=== PATIENT | female | born 1945 | race Caucasian/White ===

== ENCOUNTER 2023-12-07 08:16 | Outpatient (CLI) | payer MEDICARE, SELFPAY ==
[2023-12-07] VITALS (9 sets, daily range): BP systolic 128–188; BP diastolic 69–82; PULSE 71–79; RESP 12–19; TEMP 36.5; O2SAT 96–99
--- NOTE | 2023-12-07 09:15 | DI.RAD.S_ITS ---
PROCEDURE: PAIN L INTERLAMINAR/CAUDAL INJ INDICATIONS: para left L5/S1 TL GLORIA COMPARISON: None. FINDINGS: Fluoroscopic spot filming was performed to verify placement of spinal needles at the left L5-S1 level(s), as labeled on the films. Appropriate location(s) of the needle tip(s) was confirmed by injection of iodinated contrast. IMPRESSION: Fluoroscopic support for left L5-S1 GLORIA. Please see separate procedure note for further details. Dictated by: Pa Espitia M.D. on 12/07/2023 at 17:33 Approved by: Pa Espitia M.D. on 12/07/2023 at 17:34
[2023-12-07] MEDS: MIDAZOLAM 2 MG/2 ML VIAL IV (09:43)
[2023-12-07] MEDS: iopamidoL 15 ML VIAL 3 ML INJ (09:47)
[2023-12-07] MEDS: BUPIVACAINE 0.25% (PF) VIAL 2 ML INJ (09:48)
[2023-12-07] MEDS: DEXAMETHASONE 10 MG/ML VIAL INJ (09:48)
[2023-12-07] MEDS: BETAMETHASONE 30 MG/5 ML MDV 6 MG INJ (09:48)
--- NOTE | 2023-12-07 10:01 | P.PCN_ITS ---
Date/Time/Diagnoses Date of procedure: 12/07/23 Time of procedure: 10:01 Pre-procedure diagnosis: 1. HNP WITH RADICULAR FEATURES, 2. MULTILEVEL CENTRAL STENOSIS, Post-procedure diagnosis: same Procedure Notes Procedure: 1. FLUOROSCOPICALLY GUIDED CONTRAST CONTROLLED INTERLAMINAR EPIDURAL STEROID INJECTION - L5/S1 Indications: Martha is referred by ELEONORA Greer for treatment of Bilateral Foraminal Stenosis L>R LE symptoms. Physician: Marbin Silveira Total Fluoroscopy time (seconds): 11 Total sedation minutes: 13 Complications: none Procedure in detail & Post-procedure care: FINDINGS Multilevel Central Spinal Stenosis with Nerve Root Compression DESCRIPTION OF PROCEDURE Fluoroscopically guided, contrast-controlled L5/S1 translaminar epidural steroid injection. Following review of allergy and review of potential side effects and complications, including, but not necessarily limited to, infection, allergic reaction, local tissue breakdown, temporary as well as permanent nerve injury, paralysis, stroke and possible , the patient indicated that the patient understood and agreed to proceed. An informed consent document was signed by the patient, witnessed by a nurse, and placed in the patient's chart. Additionally, other treatment options including modalities, medications, and physical therapy were reviewed with the patient. After review of previous anaesthesic history and IV conscious sedation the patient was deemed safe to proceed with today?s procedure with IV conscious sedation as ASA class II designation. Safety time-out was performed to confirm patient ID, procedure to be performed and site of procedure. IV sedation was accomplished with a combination of 2mg of Versed administered by the RN after DO order, titrated to patient comfort during the course of the procedure while the patient remained responsive to all verbal commands. In the prone position, following sterile prep and drape of the lumbar region, the L5/S1 translaminar space was identified fluoroscopically. The skin was anesthetized via a 25-gauge, 1.5-inch needle with 1% lidocaine solution. At this point, a 22-gauge short bevel spinal needle was atraumatically introduced and advanced under fluoroscopic guidance into the region of the L5/S1 translaminar space. Depth was confirmed on lateral view. Radiological data, including multiple fluoroscopic views of the lumbar spine, reveal a spinal needle at the L5/S1 translaminar space. Lateral views then show placement of the needle in the epidural space. Subsequent views show contrast material flowing superiorly and inferiorly in the epidural space. No vascular or intrathecal uptake is observed. At this point, using loss of resistance technique with saline and air, the epidural space was entered. This was confirmed following negative aspiration with injection of approximately 1.5cc of Isovue 200, showing excellent epidural flow without vascular or intrathecal uptake. At this point, 1 cc of 1% lidocain e solution combined with 2cc or 10mg of dexamethasone and 6mg of betamethasone was injected without incident. The patent tolerated the procedure without signs of symptoms of complications prior to transfer to the recovery area for further monitoring. The patient was then transferred to the recovery area where they were observed for an appropriate period of time after the injection. The patient reported a VAS score of 6 prior to the procedure and a post-procedure VAS of 0. POST OP INSTRUCTIONS The patient was provided a Pain Log to continue to record their response to the target-specific procedure prior to follow-up visit with their referring physician. Additionally, specific post-injection care instructions and a contact number to our office were provided if concerns arise regarding possible complications associated with the procedure are suspected.
== END 2023-12-07 10:20 | disposition home or self-care (01) ==
PROVIDERS: PCP Physician Assistant Medical; Referring Provider Physical Medicine & Rehabilitation; Visit Provider Physical Medicine & Rehabilitation
DX: M51.17 Intervertebral disc disorders with radiculopathy, lumbosacral region (principal); M48.07 Spinal stenosis, lumbosacral region
CPT/HCPCS: 62323; 99152; J0702; J1100; J2250; J3490

== ENCOUNTER → 2024-06-05 11:54 | Outpatient (CLI) | payer MEDICARE, SELFPAY ==
--- NOTE | 2024-06-05 11:56 | DI.RAD.S_ITS ---
PROCEDURE: XR LUMBAR SPINE MIN 4V INDICATIONS: BACK PAIN TECHNIQUE: 5 views of the lumbar spine were acquired, including bilateral oblique views. COMPARISON: None. FINDINGS: Bones: 5 nonrib-bearing vertebrae are present. L4-5 posterior spinal fixation and discectomy. Grade 1 retrolisthesis of L1 on L2, L2 on L3 and L3 on L4. Grade 2 anterolisthesis of L5 on S1. 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 Decreased osseous mineralization. Multilevel degenerative changes of the lumbar spine, severe at L1-L2 and L2-L3 and L5-S1. No vertebral body compression fractures. No suspicious bony lesions. Soft tissues: Overlying bowel gas pattern is normal. No suspicious soft tissue calcifications. Oblique images: Likely pars defects at L5-S1, evaluation is limited secondary to overlying hardware. IMPRESSION: Severe multilevel degenerative changes of the lumbar spine as described above status post L4-5 posterior spinal fixation. Dictated by: Jay William M.D. on 06/05/2024 at 14:30 Approved by: Jay William M.D. on 06/05/2024 at 14:31
--- NOTE | 2024-06-05 11:56 | DI.RAD.S_ITS ---
PROCEDURE: XR CERVICAL SPINE 4V OR 5V INDICATIONS: BILATERAL HAND PAIN TECHNIQUE: 5 views of the cervical spine acquired. COMPARISON: None. FINDINGS: Bones: No fractures or dislocations to the C7-T1 level. Straightening of normal cervical lordosis. Mild anterolisthesis of C7 on T1. Oblique images demonstrate at least mild multilevel bony foraminal stenoses. There are multilevel degenerative changes of the cervical spine with facet and uncovertebral arthropathy, disc height loss with degenerative endplate changes and spurring. This is severe at C3-C4, C4-C5 and C6-C7. Soft tissues: No prevertebral soft tissue swelling. IMPRESSION: Severe multilevel degenerative changes of the cervical spine. Consider MRI for further evaluation as clinically indicated. Dictated by: Jay William M.D. on 06/05/2024 at 14:28 Approved by: Jay William M.D. on 06/05/2024 at 14:30
== END ==
PROVIDERS: PCP Physician Assistant Medical; Referring Provider Physical Medicine & Rehabilitation; Visit Provider Physical Medicine & Rehabilitation
DX: M47.26 Other spondylosis with radiculopathy, lumbar region (principal); M47.27 Other spondylosis with radiculopathy, lumbosacral region; M79.641 Pain in right hand; M47.812 Spondylosis without myelopathy or radiculopathy, cervical region; M79.642 Pain in left hand; M43.17 Spondylolisthesis, lumbosacral region; Z98.890 Other specified postprocedural states
CPT/HCPCS: 72050; 72110

== ENCOUNTER → 2024-06-26 11:52 | Outpatient (CLI) | payer MEDICARE, SELFPAY ==
--- NOTE | 2024-06-26 11:53 | DI.MRI.S_ITS ---
PROCEDURE: MR CERVICAL SPINE WO CON INDICATIONS: PROGRESSIVE CERVICAL RADICULOPATHY TECHNIQUE: Noncontrast sagittal T1 spin echo and T2 fast spin echo, sagittal STIR, foraminal oblique sagittal T2 fast spin echo, and axial gradient echo or T2 fast spin echo through the cervical spine. COMPARISON: None. FINDINGS: Image quality: Excellent. Alignment and Curvature: Mild reversal the normal cervical lordosis. Mild anterolisthesis of C7 on T1. Bone Marrow: Mild multilevel degenerative endplate changes. Marrow demonstrates normal overall signal. Spinal Cord: Visualized spinal cord has normal size and signal. No cerebellar tonsillar herniation. Paraspinous Soft Tissues: No paravertebral masses. Prevertebral soft tissues are normal in thickness. C2-C3: Disc desiccation. No central canal stenosis. Facet and uncovertebral arthropathy. Mild bilateral neural foraminal stenosis. C3-C4: Disc desiccation and mild height loss. Posterior disc osteophyte complex abutting the ventral cord. Mild central canal stenosis. Facet uncovertebral arthropathy. Moderate bilateral neural foraminal stenosis. C4-C5: Disc desiccation and moderate height loss. Posterior disc osteophyte complex. Mild central canal stenosis. Facet and uncovertebral arthropathy. Moderate bilateral neural foraminal stenosis. C5-C6: Disc desiccation and mild height loss. Posterior disc osteophyte complex. Mild central canal stenosis. Facet uncovertebral arthropathy. Moderate bilateral neural foraminal stenosis. C6-C7: Disc desiccation is severe height loss. Posterior disc osteophyte complex. Mild to moderate central canal stenosis. Facet uncovertebral arthropathy. Severe bilateral neural foraminal stenosis. C7-T1: No central canal or neural foraminal stenosis. IMPRESSION: 1. Multilevel degenerative changes of the cervical spine as described above. 2. Ndty-cd-vyalgwbs central canal stenosis at C6-C7. Mild multilevel central canal stenosis at other levels. 3. Severe bilateral neural foraminal stenosis at C6-C7. Moderate multilevel neural foraminal stenosis at other levels. Dictated by: Jay William M.D. on 06/26/2024 at 16:25 Approved by: Jay William M.D. on 06/26/2024 at 16:49
== END ==
LOC: MRI 11:52
PROVIDERS: PCP Physician Assistant Medical; Referring Provider Physical Medicine & Rehabilitation; Visit Provider Physical Medicine & Rehabilitation
DX: M47.22 Other spondylosis with radiculopathy, cervical region (principal); M48.02 Spinal stenosis, cervical region
CPT/HCPCS: 72141

== ENCOUNTER 2024-07-25 09:38 | Outpatient (CLI) | payer MEDICARE, SELFPAY ==
[2024-07-25] VITALS (7 sets, daily range): BP systolic 129–164; BP diastolic 58–83; PULSE 74–84; RESP 14–21; TEMP 36.6; O2SAT 95–100
--- NOTE | 2024-07-25 09:40 | DI.RAD.S_ITS ---
PROCEDURE: PAIN L INTERLAMINAR/CAUDAL INJ INDICATIONS: para left L5/S1 TL GLORIA COMPARISON: [facility], , PAIN L INTERLAMINAR/CAUDAL INJ, 12/07/2023, 9:47. FINDINGS/IMPRESSION: Fluoroscopic spot filming was performed to verify placement of spinal needles at the L5-S1 level(s), as labeled on the films. Appropriate location(s) of the needle tip(s) was confirmed by injection of iodinated contrast. Dictated by: Kulwinder Avery M.D. on 07/25/2024 at 14:18 Approved by: Kulwinder Avery M.D. on 07/25/2024 at 14:19
[2024-07-25] MEDS: MIDAZOLAM 2 MG/2 ML VIAL IV (11:11)
[2024-07-25] MEDS: DEXAMETHASONE 10 MG/ML VIAL INJ (11:13)
[2024-07-25] MEDS: BETAMETHASONE 30 MG/5 ML MDV 12 MG INJ (11:14)
[2024-07-25] MEDS: BUPIVACAINE 0.25% (PF) VIAL 2 ML INJ (11:14)
[2024-07-25] MEDS: iopamidoL 15 ML VIAL 3 ML INJ (11:14)
--- NOTE | 2024-07-25 11:26 | P.PCN_ITS ---
Date/Time/Diagnoses Date of procedure: 08/14/24 Time of procedure: 11:26 Pre-procedure diagnosis: 1. HNP WITH RADICULAR FEATURES, 2. MULTILEVEL CENTRAL STENOSIS, Post-procedure diagnosis: same Procedure Notes Procedure: 1. FLUOROSCOPICALLY GUIDED CONTRAST CONTROLLED INTERLAMINAR EPIDURAL STEROID INJECTION - L5/S1 Indications: Martha is referred by ELEONORA Greer for treatment of Bilateral Foraminal Stenosis L>R LE symptoms. Physician: Marbin Silveira Total Fluoroscopy time (seconds): 8 Total sedation minutes: 12 Complications: none Procedure in detail & Post-procedure care: FINDINGS Multilevel Central Spinal Stenosis with Nerve Root Compression DESCRIPTION OF PROCEDURE Fluoroscopically guided, contrast-controlled L5/S1 translaminar epidural steroid injection. Following review of allergy and review of potential side effects and complications, including, but not necessarily limited to, infection, allergic reaction, local tissue breakdown, temporary as well as permanent nerve injury, paralysis, stroke and possible , the patient indicated that the patient understood and agreed to proceed. An informed consent document was signed by the patient, witnessed by a nurse, and placed in the patient's chart. Additionally, other treatment options including modalities, medications, and physical therapy were reviewed with the patient. After review of previous anaesthesic history and IV conscious sedation the patient was deemed safe to proceed with today?s procedure with IV conscious sedation as ASA class II designation. Safety time-out was performed to confirm p atient ID, procedure to be performed and site of procedure. IV sedation was accomplished with a combination of 2mg of Versed administered by the RN after DO order, titrated to patient comfort during the course of the procedure while the patient remained responsive to all verbal commands. In the prone position, following sterile prep and drape of the lumbar region, the L5/S1 translaminar space was identified fluoroscopically. The skin was anesthetized via a 25-gauge, 1.5-inch needle with 1% lidocaine solution. At this point, a 22-gauge short bevel spinal needle was atraumatically introduced and advanced under fluoroscopic guidance into the region of the L5/S1 translaminar space. Depth was confirmed on lateral view. Radiological data, including multiple fluoroscopic views of the lumbar spine, reveal a spinal needle at the L5/S1 translaminar space. Lateral views then show placement of the needle in the epidural space. Subsequent views show contrast material flowing superiorly and inferiorly in the epidural space. No vascular or intrathecal uptake is observed. At this point, using loss of resistance technique with saline and air, the epidural space was entered. This was confirmed following negative aspiration with injection of approximately 1.5cc of Isovue 200, showing excellent epidural flow without vascular or intrathecal uptake. At this point, 1 cc of 1% lidocaine solution combined with 2cc or 10mg of dexamethasone and 6mg of betamethasone was injected without incident. The patent tolerated the procedure without signs of symptoms of complications prior to transfer to the recovery area for further monitoring. The patient was then transferred to the recovery area where they were observed for an appropriate period of time after the injection. The patient reported a VAS score of 6 prior to the procedure and a post-procedure VAS of 0. POST OP INSTRUCTIONS The patient was provided a Pain Log to continue to record their response to the target-specific procedure prior to follow-up visit with their referring physician. Additionally, specific post-injection care instructions and a contact number to our office were provided if concerns arise regarding possible complications associated with the procedure are suspected.
== END 2024-07-25 12:39 | disposition home or self-care (01) ==
LOC: RAD 09:40
PROVIDERS: PCP Physician Assistant Medical; Referring Provider Physical Medicine & Rehabilitation; Visit Provider Physical Medicine & Rehabilitation
DX: M51.17 Intervertebral disc disorders with radiculopathy, lumbosacral region (principal); M48.07 Spinal stenosis, lumbosacral region
CPT/HCPCS: 62323; 99152; J0702; J1100; J2250; J3490

== ENCOUNTER 2024-10-29 08:38 | Outpatient (CLI) | payer MEDICARE, SELFPAY ==
[2024-10-29] VITALS (9 sets, daily range): BP systolic 129–175; BP diastolic 60–89; PULSE 74–83; RESP 12–16; TEMP 36.6; O2SAT 95–99
[2024-10-29] MEDS: MIDAZOLAM 2 MG/2 ML VIAL IV (09:24)
[2024-10-29] MEDS: DEXAMETHASONE 10 MG/ML VIAL 20 MG INJ (09:30)
[2024-10-29] MEDS: BUPIVACAINE 0.25% (PF) VIAL 2 ML INJ (09:30)
[2024-10-29] MEDS: iopamidoL 15 ML VIAL 3 ML INJ (09:30)
--- NOTE | 2024-10-29 09:45 | P.PCN_ITS ---
Date/Time/Diagnoses Date of procedure: 10/29/24 Time of procedure: 09:45 Pre-procedure diagnosis: 1. CERVICAL STENOSIS, 2. CERVICAL HNP WITH UPPER EXTREMITY RADICULAR FEATURES Post-procedure diagnosis: same Procedure Notes Procedure: 1. FLUORSCOPICALLY GUIDED CONTRAST CONTROLLED INTERLAMINAR EPIDURAL STEROID INJECTION - C6/7 TL GLORIA Indications: Martha is referred by MARY Greer for treatment of Cervical HNP with Upper Extremity Paresthesias. Physician: Marbin Silveira Total Fluoroscopy time (seconds): 49 Total sedation minutes: 16 Complications: none Procedure in detail & Post-procedure care: FINDINGS Cervical Stenosis due to disc deterioration and nerve root irritation and nerve root irritation DESCRIPTION OF PROCEDURE Fluoroscopically guided, contrast-controlled C6/7 translaminar epidural steroid injection with conscious sedation. Following review of allergy and review of potential side effects and complications, including, but not necessarily limited to, infection, allergic reaction, local tissue breakdown, temporary as well as permanent nerve injury, stroke, paralysis, and possible , the patient indicated that patient understood and agreed to proceed. An informed consent document was signed by the patient, witnessed by a nurse, and placed in the patient's chart. Additionally, other treatment options including modalities, medications, and physical therapy were reviewed with the patient. After review of previous anaesthesic history and IV conscious sedation the patient was deemed safe to proceed with today?s procedure with IV conscious sedation as ASA class II designation. Safety time-out was performed to confirm patient ID, procedure to be performed and site of procedure. IV sedation was accomplished with a combination of 2mg of Versed administered by the RN after DO order, titrated to patient comfort during the course of the procedure while the patient remained responsive to all verbal commands. In the prone position, following sterile prep and drape of the cervical region, the C6/7 translaminar space was identified fluoroscopically. The skin was anesthetized via a 25-gauge 1.5-inch needle with 1% lidocaine solution. At this point, a 25-gauge, 2.5-inch short bevel spinal needle was atraumatically introduced and advanced under fluoroscopic guidance into epidural space at the C6/7 translaminar space. Depth was confirmed on lateral view. Radiological data, including multiple fluoroscopic views of the cervical spine, reveal a spinal needle at the C6/7 translaminar space. Lateral views then show placement of the needle in the epidural space. Subsequent views show contrast material flowing superiorly and inferiorly in the epidural space. DSA fluoroscopy with live contrast injection, once again, confirmed no vascular or intrathecal uptake. At this point, using loss of resistance technique with saline and air, the epidural space was entered. Following negative aspiration, injection of approximately 1.5 cc of Isovue-200 with live fluoroscopy in the AP view confirmed epidural flow in the epidural space without vascular or intrathecal uptake observed. Subsequently, a test dose of 1 cc of 1% lidocaine solution was injected and patient was observed for two minutes without signs or symptoms of complications, including abdominal pain, shortness of breath, bilateral upper or lower extremity weakness, nausea and vomiting, prior to steroid injection. At this point, 2cc or 20mg of dexamethasone was then injected without incident. The patient tolerated the procedure well without signs or symptoms of complica tions prior to being transferred to the recovery area for further monitoring, The patient was then transferred to the recovery area where they were observed for an appropriate period of time after the injection. The patient reported a VAS score of 6 prior to the procedure and a post-procedure VAS of 0. POST OP INSTRUCTIONS The patient was provided a Pain Log to continue to record their response to the target-specific procedure prior to follow-up visit with the referring provider. Additionally, specific post-injection care instructions and a contact number to our office were provided if concerns arise regarding possible complications associated with the procedure are suspected.
== END 2024-10-29 09:55 | disposition home or self-care (01) ==
LOC: RAD 08:40
PROVIDERS: PCP Physician Assistant Medical; Referring Provider Physical Medicine & Rehabilitation; Visit Provider Physical Medicine & Rehabilitation
DX: M48.02 Spinal stenosis, cervical region (principal); M50.123 Cervical disc disorder at C6-C7 level with radiculopathy
CPT/HCPCS: 62321; 99152; J1100; J2250; J3490